=== PATIENT | female | born 1980 | race Caucasian/White ===

== ENCOUNTER 2023-01-27 20:02 | Emergency (ER) | payer OTHER ==
[2023-01-27 20:12] VITALS: BMI 34.3
[2023-01-27] MEDS ORDERED: ACETAMINOPHEN 1000 MG/100 ML BAG IVPB ONE (20:54)
[2023-01-27] MEDS ORDERED: SODIUM CHLORIDE 0.9% 500 ML INFUS.BAG IV ONE ×2 (20:54→23:08)
[2023-01-27] MEDS ORDERED: MAG HYDROX/AL HYDROX/SIMETH -MYLANTA- ORAL SUSPENSION PO ONE (20:54)
[2023-01-27] MEDS ORDERED: ONDANSETRON 4 MG TABLET PO ONE (20:54)
[2023-01-27] MEDS ORDERED: ONDANSETRON 4 MG/2 ML VIAL ONE (21:10)
[2023-01-27] MEDS ORDERED: MAG HYDROX/AL HYDROX/SIMETH 30 ML UNIT-DOSE CUP ONE (21:10)
[2023-01-27] MEDS ORDERED: ACETAMINOPHEN INJECTION 100 ML IVPB ONE (21:10)
[2023-01-27] MEDS ORDERED: ONDANSETRON 4 MG/2 ML VIAL IVPUSH ONE (21:28)
[2023-01-27 21:43] LABS: BASO % 0.3 % (0-2.0); EOS % 0.1 % (0-4.5); HEMOGLOBIN 14.6 GM/dL (10.7-15.3); LYMPH % 4.8 % (8-40); MCH 28.5 pg (25.7-33.7); MCHC 33.2 g/dl (32.0-36.0); MEAN CELL VOLUME 85.8 fl (80-96); MEAN PLT VOLUME 9.4 fl (7.5-11.1); MONO % 7.6 % (3.8-10.2); NEUT % 87.2 % (42.8-82.8); PLATELET COUNT 296 10^3/uL (134-434); RBC 5.13 M/mm3 (3.60-5.2); RDW 13.9 % (11.6-15.6); WHITE BLOOD COUNT 9.9 K/mm3 (4.0-10.0)
[2023-01-27 22:07] LABS: POTASSIUM 4.4 mmol/L (3.5-5.1)
[2023-01-27 22:09] LABS: CALCIUM 9.1 mg/dL (8.5-10.1)
[2023-01-27 22:13] LABS: CREATININE 0.9 mg/dL (0.55-1.3)
[2023-01-27 22:14] LABS: BILIRUBIN,TOTAL 0.6 mg/dL (0.2-1); TOT PROT 8.3 g/dl (6.4-8.2)
[2023-01-27 22:40] LABS: VENOUS BASE EXCESS -7.8 mmol/L (-2-2); VENOUS O2 SATURATION 65.6 % (70-80); VENOUS PCO2 39.3 mmHg (38-52); VENOUS PH 7.286 (7.310-7.410)
[2023-01-27 22:57] LABS: POTASSIUM 4.4 mmol/L (3.5-5.1)
[2023-01-27 23:00] LABS: CALCIUM 8.8 mg/dL (8.5-10.1)
[2023-01-27 23:03] LABS: CREATININE 0.9 mg/dL (0.55-1.3)
[2023-01-28 01:19] VITALS: BP 109/45; PULSE 86; RESP 14; TEMP 98.4
[2023-01-28] MEDS ORDERED: INSULIN REGULAR HUMAN 100 UNITS/ML *VIAL SQ ONE (01:50)
[2023-01-28 03:14] LABS: VENOUS BASE EXCESS -6.6 mmol/L (-2-2); VENOUS O2 SATURATION 69.7 % (70-80); VENOUS PCO2 44.3 mmHg (38-52); VENOUS PH 7.274 (7.310-7.410)
[2023-01-28 03:28] LABS: CALCIUM 7.9 mg/dL (8.5-10.1)
[2023-01-28 03:33] LABS: CREATININE 0.6 mg/dL (0.55-1.3)
[2023-01-28 04:03] LABS: URINE APPEARANCE CLEAR; URINE BILIRUBIN NEGATIVE (NEGATIVE); URINE COLOR YELLOW; URINE GLUCOSE (UA) 3+ (NEGATIVE); URINE KETONE 3+ (NEGATIVE); URINE LEUK ESTERASE NEGATIVE (NEGATIVE); URINE NITRITE NEGATIVE (NEGATIVE); URINE PROTEIN NEGATIVE (NEGATIVE); URINE UROBILINOGEN 0.2 mg/dL (0.2-1.0)
[2023-01-28 04:31] LABS: ARTERIAL BLD GAS O2 SATURATION 96.1 % (95-98); ARTERIAL BLOOD GAS BASE EXCESS -6.3 mmol/L (-2-2); ARTERIAL BLOOD GAS PO2 87.5 mmHg (80-100)
== END 2023-01-28 05:06 | disposition home or self-care (01) ==
LOC: JER 20:02
PROC: 3E033NZ Introduction of Analgesics, Hypnotics, Sedatives into Peripheral Vein, Percutaneous Approach (ICD-10-PCS; principal; 2023-01-27)
PROC: 3E033GC Introduction of Other Therapeutic Substance into Peripheral Vein, Percutaneous Approach (ICD-10-PCS; 2023-01-27)
PROC: 3E013VG Introduction of Insulin into Subcutaneous Tissue, Percutaneous Approach (ICD-10-PCS; 2023-01-27)
DX: E11.65 Type 2 diabetes mellitus with hyperglycemia (principal); Z20.822 Contact with and (suspected) exposure to COVID-19
CPT/HCPCS: 0241U-QW; 36415; 36600; 80048; 80053; 81003; 82010; 82803; 82962; 83690; 84703; 85025; 87086; 99284-25

== ENCOUNTER 2023-08-21 09:04 | Emergency (ER) | payer OTHER ==
[2023-08-21 09:17] VITALS: BP 134/71; PULSE 91; RESP 18; TEMP 98.5; BMI 32.7
== END 2023-08-21 10:24 | disposition home or self-care (01) ==
LOC: JERFT 09:04
DX: J02.9 Acute pharyngitis, unspecified (principal); R09.81 Nasal congestion; B34.9 Viral infection, unspecified; R11.2 Nausea with vomiting, unspecified; Z20.822 Contact with and (suspected) exposure to COVID-19
CPT/HCPCS: 0241U-QW; 99283-25

== ENCOUNTER 2023-09-04 19:28 | Observation (INO) | payer OTHER ==
[2023-09-04 19:37] VITALS: BMI 32.7
[2023-09-04] MEDS ORDERED: FAMOTIDINE 20 MG/50 ML IVPB 20 MG/50 ML MG IVPB ONE ×2 (21:25→22:24)
[2023-09-04] MEDS ORDERED: SODIUM CHLORIDE 0.9% 500 ML INFUS.BAG IV ONE (21:25)
[2023-09-04] MEDS ORDERED: MAG HYDROX/AL HYDROX/SIMETH -MYLANTA- ORAL SUSPENSION PO ONE (21:25)
[2023-09-04] MEDS ORDERED: ACETAMINOPHEN 1000 MG/100 ML BAG IVPB ONE (21:25)
[2023-09-04] MEDS ORDERED: MAG HYDROX/AL HYDROX/SIMETH 30 ML UNIT-DOSE CUP ONE (22:24)
[2023-09-04] MEDS ORDERED: ACETAMINOPHEN INJECTION 100 ML IVPB ONE (22:24)
[2023-09-04 22:29] LABS: BASO % 0.4 % (0-2.0); HEMATOCRIT 42.1 % (32.4-45.2); LYMPH % 6.9 % (8-40); MCH 28.1 pg (25.7-33.7); MCHC 33.3 g/dl (32.0-36.0); MEAN CELL VOLUME 84.3 fl (80-96); MEAN PLT VOLUME 9.3 fl (7.5-11.1); MONO % 7.1 % (3.8-10.2); NEUT % 85.6 % (42.8-82.8); PLATELET COUNT 276 10^3/uL (134-434); RBC 4.99 M/mm3 (3.60-5.2); RDW 13.9 % (11.6-15.6); WHITE BLOOD COUNT 17.9 K/mm3 (4.0-10.0)
[2023-09-04 22:51] LABS: POTASSIUM 3.8 mmol/L (3.5-5.1)
[2023-09-04 22:52] LABS: URINE APPEARANCE CLEAR; URINE BILIRUBIN NEGATIVE (NEGATIVE); URINE COLOR ORANGE; URINE GLUCOSE (UA) 3+ (NEGATIVE); URINE KETONE 4+ (NEGATIVE); URINE LEUK ESTERASE NEGATIVE (NEGATIVE); URINE NITRITE NEGATIVE (NEGATIVE); URINE PROTEIN NEGATIVE (NEGATIVE); URINE UROBILINOGEN 0.2 mg/dL (0.2-1.0)
[2023-09-04 22:54] LABS: ALBUMIN 3.6 g/dl (3.4-5.0); BLOOD UREA NITROGEN 9.8 mg/dL (7-18); CALCIUM 8.9 mg/dL (8.5-10.1)
[2023-09-04 22:57] LABS: CREATININE 0.7 mg/dL (0.55-1.3)
[2023-09-04 22:59] LABS: BILIRUBIN,TOTAL 5.4 mg/dL (0.2-1); TOT PROT 7.6 g/dl (6.4-8.2)
[2023-09-05 00:54] LABS: BILIRUBIN,DIRECT 0.3 mg/dL (0.0-0.2)
[2023-09-05] MEDS ORDERED: CEFOTETAN DISODIUM 2 GM in DEXTROSE 5%-WATER - 100 ML IVPB ONE (01:19)
[2023-09-05] MEDS ORDERED: CEFAZOLIN 2 GM in DEXTROSE 5%-WATER - 50 ML IVPB ONE (02:43)
[2023-09-05] MEDS ORDERED: ceFAZolin SODIUM 1 GM VIAL ONE ×2 (03:14→08:42)
[2023-09-05] MEDS ORDERED: ACETAMINOPHEN 1000 MG/100 ML BAG IVPB PRN (03:38)
[2023-09-05] MEDS ORDERED: traMADol HCL 50 MG TABLET PO PRN (03:39)
[2023-09-05] MEDS ORDERED: LACTATED RINGERS SOLUTION 1,000 ML/1,000 ML INFUS.BAG IV SCH ×2 (03:45→09:34)
[2023-09-05 04:15] LABS: MAGNESIUM 1.6 mg/dL (1.8-2.4)
[2023-09-05] MEDS ORDERED: INSULIN ASPART SLIDING SCALE (NOVOLOG) 1 VIAL SQ SCH ×2 (07:00→11:00)
[2023-09-05] MEDS ORDERED: BUPIVACAINE HCL/PF 0.25% (2.5MG/ML) 10 ML VIAL ONE (07:35)
[2023-09-05] MEDS ORDERED: PROPOFOL 40 ML ONE (07:40)
[2023-09-05] MEDS ORDERED: ROCURONIUM BROMIDE 50 MG/5 ML SYRINGE ONE (07:40)
[2023-09-05] MEDS ORDERED: MIDAZOLAM HCL 2 MG/2 ML SINGLE DOSE VIAL ONE (07:41)
[2023-09-05] MEDS ORDERED: BSS (NA/CA/MG/K) BALANCED SALT SOLUTION OPHTH SOLN 15 ML BOTTLE ONE (07:45)
[2023-09-05] MEDS ORDERED: cefOXitin SODIUM 2 GM VIAL (RESTRICTED TO ID) IVPB ONE (07:59)
[2023-09-05] MEDS ORDERED: HEPARIN NA (PORCINE) 5,000 UNITS/ML 1ML VIAL ONE (07:59)
[2023-09-05] MEDS ORDERED: morphine CARPU-JECT 2 MG/1 ML DISP.SYRIN IVPUSH PRN (08:00)
[2023-09-05] MEDS ORDERED: BUPIVACAINE HCL/PF 0.25% (2.5MG/ML) 10 ML VIAL IJ ONE (08:39)
[2023-09-05] MEDS ORDERED: PHENYLEPHRINE HCL 10 MG/1 ML SINGLE DOSE VIAL ONE (08:42)
[2023-09-05] MEDS ORDERED: ONDANSETRON 4 MG/2 ML VIAL ONE (08:42)
[2023-09-05] MEDS ORDERED: KETOROLAC TROMETHAMINE 30 MG/1 ML VIAL ONE (08:42)
[2023-09-05] MEDS ORDERED: DEXAMETHASONE SOD PHOSPHATE 4 MG/1 ML VIAL ONE (08:42)
[2023-09-05] MEDS ORDERED: METOCLOPRAMIDE HCL INJECTION 10 MG/2 ML VIAL ONE (08:42)
[2023-09-05] MEDS ORDERED: LIDOCAINE HCL/PF 2% SDV 5ML VIAL ONE (08:42)
[2023-09-05] MEDS ORDERED: SUGAMMADEX SODIUM 200 MG/2 ML VIAL ONE (08:59)
[2023-09-05] MEDS ORDERED: oxyCODONE HCL 5 MG TABLET PO PRN ×2 (09:25→09:44)
[2023-09-05] MEDS ORDERED: ONDANSETRON 4 MG/2 ML VIAL IVPUSH PRN (09:25)
[2023-09-05] MEDS ORDERED: LACTATED RINGERS SOLUTION 1,000 ML IV SCH (09:30)
[2023-09-05] MEDS ORDERED: HYDROCHLOROTHIAZIDE 12.5 MG CAPSULE (FP) PO SCH ×2 (10:00)
[2023-09-05] MEDS ORDERED: cefTRIAXone SODIUM 1 GM VIAL IVPB ONE (12:00)
[2023-09-05] MEDS ORDERED: CEFTRIAXONE 1 GM in DEXTROSE 5%-WATER - 50 ML IVPB SCH (12:00)
[2023-09-05] MEDS: MAGNESIUM 1GM/D5W 100ML - 100 ML IVPB IVPB ONE ×3 (12:13→12:28)
[2023-09-05] MEDS ORDERED: MAGNESIUM SULF 50% (8.12 MEQ/2 ML-1 GM VIAL) IVPB ONE (12:15)
[2023-09-05 12:56] VITALS: RESP 20; TEMP 97.7
[2023-09-05 14:59] VITALS: BP 112/61; PULSE 97
[2023-09-05] MEDS ORDERED: ACETAMINOPHEN 1000 MG/100 ML BAG IVPB SCH (15:30)
[2023-09-05] MEDS ORDERED: LISINOPRIL 20 MG TABLET PO SCH ×2 (22:00)
== END 2023-09-05 14:25 | disposition home or self-care (01) ==
LOC: JER 19:28 → JERBED 09-05 01:50 → INTOOBSV 09-05 01:50 → UNDODISOB 09-05 12:18
PROVIDERS: ADMIT Internal Medicine; ATTEND Internal Medicine
PROC: 3E03329 Introduction of Other Anti-infective into Peripheral Vein, Percutaneous Approach (ICD-10-PCS; 2023-09-05)
PROC: 3E033GC Introduction of Other Therapeutic Substance into Peripheral Vein, Percutaneous Approach (ICD-10-PCS; 2023-09-05)
PROC: 3E0337Z Introduction of Electrolytic and Water Balance Substance into Peripheral Vein, Percutaneous Approach (ICD-10-PCS; 2023-09-05)
PROC: 0DTJ4ZZ Resection of Appendix, Percutaneous Endoscopic Approach (ICD-10-PCS; 2023-09-05)
PROC: 3E033NZ Introduction of Analgesics, Hypnotics, Sedatives into Peripheral Vein, Percutaneous Approach (ICD-10-PCS; principal; 2023-09-05 08:00)
DX: K35.80 Unspecified acute appendicitis (principal); E11.9 Type 2 diabetes mellitus without complications; E80.6 Other disorders of bilirubin metabolism
CPT/HCPCS: 0241U-QW; 36415; 71046-TC-FY; 74177-TC; 80053; 81003; 82248; 83690; 83735; 84484; 84703; 85025; 87077; 87086; 88304-TC; 93005; 93010; 94760; 99285-25; G0378; J1644; Q9967